=== PATIENT | female | born 1945 | race Caucasian/White ===

== ENCOUNTER 2025-07-18 15:25 | Emergency (ER) | payer MEDICARE, SELFPAY ==
[2025-07-18 15:26] VITALS: BP 166/97
[2025-07-18 16:01] VITALS: BMI 30.8
--- NOTE | 2025-07-18 16:39 | ED.SKININJ ---
HPI-Injury
General
Chief Complaint: Head Injury
Source: patient
Exam Limitations: none
Time Seen by Provider: 07/18/25 16:24
Nursing documentation reviewed up to this point in time: agreed with
History of Present Illness-Injury
Initial Injury comments:
79-year-old female with history of HTN presents with a Y shaped laceration mid forehead after tripping over the threshold between her house and her garage about 1 hour [employer], falling forward and striking her face on the cement floor of the garage
while wearing her glasses. There was no loss of consciousness. She denies headache, neck pain, back pain or any other injury. She states she has pain and stuffiness about her nose and she had a 'terrible nosebleed' which has stopped. She is not
anticoagulated. She was able to get herself up, she called her neighbor friend to bring her in. She states her tetanus immunization is up-to-date.
Past History
Past History
ED Past Medical History: HTN
ED Past Surgical History: Gynecological and Orthopedic
Social History
Tobacco: Non-smoker
Personal:
Living: alone
Review of Systems
Review of Systems
Allergies reviewed?: Yes
All Other Systems: ROS reviewed and negative except as documented in HPI and ROS
Respiratory: Denies trouble breathing
Cardiac: Denies chest pain or syncope
ABD/GI: Denies abdominal pain, nausea or vomiting
: Denies incontinence
Musculoskeletal: Denies neck pain or back pain
Skin: Reports other (Cut mid forehead from glasses which remained intact)
Neurological: Denies dizzy, headache, weakness or numbness
Skin Exam
Laceration
mid forehead:
Length in cm: 7
Orientation: stellate ('Y' shaped)
Type of Laceration: complex
Any active bleeding?: low grade venous oozing
Phy Exam
Physical Exam
Physical Exam:
GENERAL: No acute distress. A&Ox3.
CONSTITUTIONAL: Afebrile.
EYES: clear, EOMS intact, no significant orbital tenderness. conjunctivae normal, PERRL. No hemotympanum
ENMT: moist mucus membranes, Pharynx nl. Dried blood in both nasal passages L>R, no active bleeding.
RESPIRATORY: Regular respirations, nonlabored, lungs clear.
CARDIOVASCULAR: Regular rate and rhythm, no murmurs, no rubs.
GI: Soft, nontender, normal BS
MUSCULOSKELETAL: Moves with ease. Well perfused.
SKIN: Warm, dry, pink. Ecchymosis around nose and infraorbital areas.
PSYCH: Normal mood and affect. Well kept, interactive and appropriate
NEUROLOGIC: Awake, alert and oriented. Cranial nerves II through XII intact. Cerebellum intact (ambulates well with steady gait). No focal neurological deficits
Course
Orders/Labs/Results
Orders:
Orders
07/18/25 16:32
[address] wo Cont[address] [CT Facial Bones W/o Iv Contras] Urgent
Comment:
Reason For Exam: fall swelling nose
07/18/25 16:33
CT Head W/o Iv Contrast Urgent
Comment:
Reason For Exam: fall face planted
07/18/25 16:34
Lidocaine/Epinephrine/Tetracai [Let Topical Anesthetic Gel] 3 ml TOPICAL NOW STA
07/18/25 17:02
CT Cervical Spine W/o Iv Contr Urgent
Comment:
Reason For Exam: face planted, fall
07/18/25 18:21
Cephalexin Monohydrate [Keflex] 500 mg PO NOW STA
Vital Signs
Initial and Last Documented VS:
Initial Vital Signs
Temp Pulse Resp BP Pulse Ox
98.9 F 95 20 166/97 95
07/18/25 15:26 07/18/25 15:26 07/18/25 15:26 07/18/25 15:26 07/18/25 15:26
Last Documented Vital Signs
Temp Pulse Resp BP Pulse Ox
98.9 F 79 20 166/97 96
07/18/25 15:26 07/18/25 18:38 07/18/25 18:38 07/18/25 15:26 07/18/25 18:38
Procedures
Laceration Closure
lower mid forehead:
Status of Wound: clean
Size of Wound in cm: 7
Description of Wound Edges: sharp
Preparation: cleaned with saline
Anesthesia: 1% Lidocaine with epi and Topical-LET
Revision/Debridement: routine- no revision
Wound exploration: explored to base- no FB
Type of Closure: layered closure, interrupted sutures and Dermabond-skin glue
Skin Closure Material: 5-0 prolene and 5-0 vicryl
Number of sutures: 8
Additional information:
#2 subcutaneous sutures, #6 interrupted sutures, the three ends of each wound were glued with good approximation of wound edges. Skin adhesive and steri strips applied.
MDM/Problems Addressed
Differential Diagnosis Includes:
Concussion, facial fractures
MDM/Problems Addressed:
79-year-old female with history of HTN presents with a Y shaped laceration mid forehead after tripping over the threshold between her house and her garage about 1 hour [employer], falling forward and striking her face on the cement floor of the garage
while wearing her glasses. There was no loss of consciousness. She denies headache, neck pain, back pain or any other injury. She states she has pain and stuffiness about her nose and she had a 'terrible nosebleed' which has stopped. She is not
anticoagulated. She was able to get herself up, she called her neighbor friend to bring her in. She states her tetanus immunization is up-to-date.
Normal neuro exam. Ambulating well with steady gait.
No sign of concussion
6:20 PM:
Head CT radiology report read: No acute abnormality
Neck CT radiology report read: No acute abnormality
Facial bones CT radiology report read: Minimally displaced hairline may nasal bone fractures
Patient states she had colitis from penicillin. Not a true allergy.
She is out of bed and walking around, feeling well, stable for discharge.
*Pulse Oximetry
SaO2: 95
Oxygen Mode of Delivery: Room air
Patient hypoxic: no
*Critical Care Note
Total Time (30-74mins, 75-104mins- exclusive of procedures): Not Applicable
ED Attending Note
-
Portions of this chart may have been created with voice recognition software.� Occasional wrong word or��sound alike� substitutions may have occurred due to the inherent limitations of voice recognition software.
Discharge Plan
Departure
Patient Disposition: Home (Routine Discharge)
Date of Disposition: 07/18/25
Time of Disposition: 18:27
Patient with high blood pressure during this ER visit?: No
Condition: Good
Discharge Problem:
Fall from slip, trip, or stumble, Complex laceration of face, Head injury, acute, without loss of consciousness, Fracture of nasal bone
Instructions: Laceration Repair With Glue (DC), Head Injury in Adults (DC), Laceration Repair With Stitches (DC), Nose Fracture ED
Prescriptions:
New
cephalexin 500 mg capsule
500 mg PO QID 7 Days Qty: 28 0RF
Referrals:
Alanna Li MD [Family Provider, Internal Medicine] - Call in 1-3 days for appt
Activity Restrictions/Additional Instructions:
As we discussed, Tylenol as needed for pain.
Cold compress to the area 20 minutes off-and-on today and tomorrow is much as you can to minimize swelling and bruising
Return here immediately for vomiting more than once in 1 hour, headache that gets worse and worse despite Tylenol or confusion
Allow the strips to fall off by themselves, if they are not off by 5 days you may remove them.
Have the sutures removed in 5 to 7 days. Call your doctors office tomorrow and make the appointment
After 24 hours, you may briefly the strips in the shower, after showering, pat them dry or blow them dry with a blow dryer.
I sent a prescription to your pharmacy for Keflex to start tomorrow take it 4 times a day for 7 days.
Interventions
Interventions:
*General Assessment Last Done: 07/18/25 18:38
*Neglect/Abuse Screening Last Done: 07/18/25 16:02
*ED COVID-19 Vaccine History Last Done: 07/18/25 15:26
*ED Influenza Vaccine History Last Done: 07/18/25 15:26
[facility] Fall Risk Assessment Tool Last Done: 07/18/25 16:02
*Risk Screen - Suicide (C-SSRS) Last Done: 07/18/25 15:26
*Nursing Disposition Last Done: 07/18/25 18:38
ED- Neurological Assessment Last Done: 07/18/25 16:03
ED-Skin Assessment Last Done: 07/18/25 16:03
Discharge Date and Time
Discharge Date/Time: 07/18/25 18:38
Print Language: MACEDONIAN
[2025-07-18] MEDS: LET TOPICAL ANESTHETIC GEL 3 ML TOPICAL (16:52)
[2025-07-18] MEDS: KEFLEX 500 MG PO (18:37)
== END 2025-07-18 18:38 | disposition home or self-care (01) ==
LOC: EMR 15:25
PROVIDERS: EMERGENCY PHYSICIAN Emergency Medicine; FAMILY PHYSICIAN Internal Medicine
DX: S01.81XA Laceration without foreign body of other part of head, initial encounter (principal); W01.198A Fall on same level from slipping, tripping and stumbling with subsequent striking against other object, initial encounter; Y93.01 Activity, walking, marching and hiking; Y92.008 Other place in unspecified non-institutional (private) residence as the place of occurrence of the external cause; S06.9X9A Unspecified intracranial injury with loss of consciousness of unspecified duration, initial encounter; S02.2XXA Fracture of nasal bones, initial encounter for closed fracture; I10 Essential (primary) hypertension
CPT/HCPCS: 99284; 12053; 70450; 70486; 72125